=== PATIENT | female | born 1965 | race Caucasian/White ===

== ENCOUNTER 2023-04-27 09:19 | Day surgery (SDC) | payer OTHER ==
[~2023-04-27] VITALS: Ht 152.4 cm; Wt 129.3 kg
[2023-04-27] MEDS ORDERED: fentaNYL citrate 0.05 MG/ML VIAL ONE (11:28)
[2023-04-27] MEDS ORDERED: LIDOCAINE 2% 100 MG/5 ML UJET TP ONE ×2 (11:29→13:05)
[2023-04-27] MEDS: fentaNYL citrate 0.05 MG/ML VIAL IVP ONE (13:08)
== END 2023-04-27 13:40 | disposition home or self-care (01) ==
LOC: MOR 09:19 → MMU 09:30 → MOR 13:40
PROVIDERS: ATTEND Internal Medicine Gastroenterology
DX: Z12.11 Encounter for screening for malignant neoplasm of colon (principal); D12.8 Benign neoplasm of rectum; K57.30 Diverticulosis of large intestine without perforation or abscess without bleeding; I10 Essential (primary) hypertension; E78.00 Pure hypercholesterolemia, unspecified; E11.9 Type 2 diabetes mellitus without complications; Z79.84 Long term (current) use of oral hypoglycemic drugs; Z79.899 Other long term (current) drug therapy
CPT/HCPCS: 45385; 82948; J3010